=== PATIENT | female | born 1985 | race Caucasian/White ===

== ENCOUNTER 2019-10-06 15:05 | Emergency (ER) | payer MEDICAID ==
[~2019-10-06] VITALS: Ht 175.3 cm; Wt 75.8 kg
[~2019-10-06 15:05] MED LIST changes: -BACTRIM DS TAB1 EACH PO; -BUSPAR 30MG30 MG/TAB PO; -VENLAFAXINE HC100 MG PO; -ZOFRAN4 M2 PO
[2019-10-06] MEDS ORDERED: BUSPAR 30MG30 MG/TAB PO (15:46)
[2019-10-06] MEDS ORDERED: VENLAFAXINE HC100 MG PO (15:47)
[2019-10-06 16:34] LABS: EOS % 0.3 % (1.0-5.0); HEMATOCRIT 40.5 % (37.0-47.0); HEMOGLOBIN 13.3 g/dL (12.5-16.0); LYMPH# 1.8 (1.50-4.00); MEAN CELL VOLUME 93 fl (78-100); MEAN CORPUSCULAR HEMOGLOBIN 30 pg (27-31); MEAN CORPUSCULAR HGB CONC 33 g/dL (33-37); MEAN PLATELET VOLUME 10.2 fl (7.4-10.4); MONO # 1.3 (0.20-0.80); PLATELET COUNT 312 K/mm3 (130-400); RED BLOOD COUNT 4.38 M/mm3 (4.10-5.30); RED CELL DISTRIBUTION WIDTH 12.6 % (11.5-14.5); WHITE BLOOD COUNT 12.8 K/mm3 (4.8-10.8)
[2019-10-06 16:47] LABS: NEU # 9.7 (1.40-6.50)
[2019-10-06 16:50] LABS: ALBUMIN 4.6 g/dL (3.5-5.0); POTASSIUM 3.5 mmol/L (3.5-5.1)
[2019-10-06 16:51] LABS: CALCIUM 9.8 mg/dL (8.3-10.5)
[2019-10-06 16:52] LABS: URINE COLOR DARK YELLOW
[2019-10-06 16:53] LABS: URINE APPEARANCE HAZY; URINE BILIRUBIN NEGATIVE (NEGATIVE); URINE BLOOD TRACE (NEGATIVE); URINE GLUCOSE NEGATIVE (NEGATIVE); URINE KETONE NEGATIVE (NEGATIVE); URINE LEUKOCYTE ESTERASE 1+ (NEGATIVE); URINE NITRATE POSITIVE (NEGATIVE); URINE PROTEIN(semi-quant) 1+ mg/dL (NEGATIVE); URINE UROBILINOGEN 1 mg/dL (NORMAL)
[2019-10-06 16:53] LABS: TOTAL PROTEIN 8.5 g/dL (6.4-8.3)
[2019-10-06 16:54] LABS: TOTAL BILIRUBIN 1.2 mg/dL (0.2-1.2)
[2019-10-06 16:54] LABS: URINE MUCUS PRESENT (NOT PRESENT)
[2019-10-06] MEDS ORDERED: BACTRIM DS TAB1 EACH PO (18:03)
[2019-10-06] MEDS ORDERED: ZOFRAN4 M2 PO (18:03)
[2019-10-06 18:43] VITALS: BP 107/59
== END 2019-10-06 18:27 | disposition home or self-care (01) ==
LOC: ED 15:05
PROVIDERS: Nurse Practitioner Family
DX: N39.0 Urinary tract infection, site not specified (principal); F41.9 Anxiety disorder, unspecified; F32.9 Major depressive disorder, single episode, unspecified; Z98.51 Tubal ligation status; Z87.891 Personal history of nicotine dependence
CPT/HCPCS: A4216; J0696; J7030; Q9967

== ENCOUNTER → 2019-10-06 | Outpatient (CLI) | payer MEDICAID ==
[2016-04-19 13:53] VITALS: BP 103/53
[~2019-10-06] MED LIST: BACTRIM DS TAB1 EACH PO; BUSPAR 30MG30 MG/TAB PO; MACROBID 100 M100 MG PO; PRENATAL VITAMI1 T15 PO; VENLAFAXINE HC100 MG PO; ZOFRAN4 M2 PO
== END ==
LOC: LAB 14:08
DX: R50.9 Fever, unspecified (principal)